=== PATIENT | male | born 1985 | race African-American/Black ===

== ENCOUNTER 2017-02-01 19:38 | Emergency (ER) | payer OTHER ==
[~2017-02-01] VITALS: Ht 185.4 cm; Wt 102.0 kg
[~2017-02-01 19:38] MED LIST: ALBUTEROL17 GM INH; CATAFLAM50 MG PO
== END 2017-02-01 20:15 | disposition home or self-care (01) ==
LOC: CFTX 19:38 → CED 19:38 → CFTX 20:06
DX: B35.3 Tinea pedis (principal); F17.210 Nicotine dependence, cigarettes, uncomplicated; J45.909 Unspecified asthma, uncomplicated
CPT/HCPCS: 99282

== ENCOUNTER 2017-02-09 23:08 | Emergency (ER) | payer OTHER ==
[~2017-02-09] VITALS: Ht 185.4 cm; Wt 99.8 kg
== END 2017-02-09 23:14 | disposition left against medical advice (07) ==
LOC: CED 23:08
DX: Z53.21 Procedure and treatment not carried out due to patient leaving prior to being seen by health care provider (principal)

== ENCOUNTER 2017-02-16 00:05 | Emergency (ER) | payer OTHER ==
[~2017-02-16] VITALS: Ht 185.4 cm; Wt 99.8 kg
[2017-02-16 00:38] LABS: INFLUENZA A NEG (NEG); INFLUENZA B NEG (NEG)
== END 2017-02-16 05:01 | disposition home or self-care (01) ==
LOC: CED 00:05
DX: J04.0 Acute laryngitis (principal); H92.03 Otalgia, bilateral; M79.1 Myalgia; J45.909 Unspecified asthma, uncomplicated; F17.210 Nicotine dependence, cigarettes, uncomplicated
CPT/HCPCS: 87651; 87804; 99283